=== PATIENT | female | born 2000 | race Caucasian/White ===

== ENCOUNTER 2020-10-08 13:49 | Emergency (ER) | payer BC, SELFPAY ==
--- NOTE | 2020-10-08 14:07 | ED.URI ---
HPI - URI/Sore Throat General Chief Complaint: Upper Respiratory Infection Stated Complaint: upper respiratory infection Source: patient and RN notes reviewed Mode of arrival: ambulatory Limitations: no limitations History of Present Illness HPI Narrative: 20-year-old female presents to urgent care with complaints of 24 hours of a sore throat. States she has a history of strep throat every August. States she is able to eat and drink but with pain. Also complains of bilateral ear pain. Denies fevers, SOB, Chest pain or abd pain. Denies nausea, vomiting, diarrhea. Related Data Allergies Allergy/AdvReac Type Severity Reaction Status Date / Time No Known Allergies Allergy Verified 10/08/20 14:12 Review of Systems Review of Systems: Narrative: CONSTITUTIONAL: Denies fever, chills, or sweats. EYES: Denies visual changes, redness, or discharge. ENT: Denies rhinorrhea, congestion +sore throat and bilateral otalgia. CARDIOVASCULAR: Denies chest pain, palpitations, or edema. RESPIRATORY: Denies cough or dyspnea. GASTROINTESTINAL: Denies abdominal pain, nausea, vomiting, or diarrhea. GENITOURINARY: Denies dysuria or hematuria. SKIN: Denies rash or itching. MUSCULOSKELETAL: Denies back pain, joint pain, or myalgia. NEUROLOGIC: Denies headache, numbness, or weakness. PSYCHIATRIC: Denies anxiety or depression. All other systems reviewed are negative, except as documented in HPI. [facility] Social History Social History Gender identity (if verbalized by the patient): Female Comments Patient denies any past medical or surgical history. At the time of my signature, I reviewed and agree with the nursing past medical, surgical, social, and family history. There is no relevant family history pertinent to the patient complaint. Exam Narrative: Exam Narrative: GENERAL: This is a well-nourished, well-developed patient, in no apparent distress. HEAD: normocephalic, atraumatic. EYES: PERRL. Sclera clear/white. Vision is grossly intact. EARS: External ears normal, auditory canals clear and without drainage, TMs normal without perforation. Hearing grossly intact. NOSE: External nose normal. Positive for clear nasal discharge, nares without redness. THROAT: Mucous membranes moist, tonsils bilaterally with exudate. Uvula is midline. Posterior pharynx red. NECK: Neck supple. Neck tender with lateral lymphadenopathy. CARDIOVASCULAR: Regular rate and rhythm without murmurs, gallops, or rubs. RESPIRATORY: Clear to auscultation. Breath sounds equal bilaterally. No wheezes, rales, or rhonchi. GASTROINTESTINAL: Abdomen soft, non-tender, nondistended. SKIN: warm, intact with no suspicious lesions or rash, good texture and turgor. NEURO: awake, alert, and oriented to person, place and time. There were no obvious focal neurologic abnormalities. EXTREMITIES: No clubbing, cyanosis, or edema. No joint tenderness, effusion, or edema noted. Course Vital Signs Vital signs: Vital Signs Temperature 98.7 F 10/08/20 14:13 Pulse Rate 101 H 10/08/20 14:13 Respiratory Rate 18 10/08/20 14:13 Blood Pressure 137/85 10/08/20 14:13 Pulse Oximetry 100 10/08/20 14:13 Temperature 98.7 F 10/08/20 14:13 Pulse Rate 101 H 10/08/20 14:13 Respiratory Rate 18 10/08/20 14:13 Blood Pressure 137/85 10/08/20 14:13 Pulse Oximetry 100 10/08/20 14:13 Reviewed MDM - URI/Sore Throat Differential Diagnosis Differential diagnosis: Likely upper respiratory infection, otitis media, sinusitis, viral infection, bronchitis, influenza, pharyngitis and other (Strep throat) Lab Data Labs: Strep Screen Presumptive Negative *(Reference Range: Negative)* Strep Screen Presumptive Negative *(Reference Range: Negative)* Reviewed Critical Care Time Critical Care Time Critical Care Time: No Discharge
[2020-10-08 14:13] VITALS: BP 137/85; PULSE 101; RESP 18; TEMP 37.1; O2SAT 100
== END 2020-10-08 14:34 | disposition home or self-care (01) ==
PROVIDERS: Emergency Provider Nurse Practitioner; PCP Family Medicine
DX: J03.90 Acute tonsillitis, unspecified (principal)
CPT/HCPCS: 87081; 87880; 99213; G0463

== ENCOUNTER 2020-11-06 16:04 | Emergency (ER) | payer BC, SELFPAY ==
[2020-11-06 16:15] VITALS: BP 111/79; PULSE 89; RESP 20; TEMP 37.5; O2SAT 100
--- NOTE | 2020-11-06 16:23 | ED.GENADULT ---
HPI - General Adult General Chief complaint: Upper Respiratory Infection Stated complaint: Sore Throat Time Seen by Provider: 11/06/20 16:15 Source: patient and RN notes reviewed Mode of arrival: ambulatory Limitations: no limitations History of Present Illness HPI narrative: 20-year-old female presents with complaints of sore throat and low-grade fever for the past 2 days. Rosalee reports having sore throat with some improvement over the last 24 hours, no longer have white patches to throat or low grade fever. Tylenol (last on 11/05/20) with little relief. No high fevers, drooling, neck or throat swelling. Pain is bilateral. Hurts to swallow. Exacerbation factors consist of eating and drinking. No rhinorrhea. Nasal congestion. No voice change. No nausea, vomiting, or abdominal pain. Tolerating liquids well. Denies chills, dyspnea, difficulty swallowing, jaw pain, dental pain, facial pain, foreign body sensation, and rash. Remains active. The patient reports she have not been diagnosed with COVID-19. The patient reports she is not waiting for the results of a COVID-19 lab test. The patient reports she do not have chills, weakness, or fatigue. The patient reports she do not have a new or worsening cough or shortness of breath. Denies chest pain. The patient reports she do not have any loss of taste or smell or diarrhea. Tolerating po intake well. Denies recent traveling. Denies concerns for COVID-19 or exposures been home with limited outdoor exposure except for essential household needs, work, and return home. At this time, patient is not suspected of having COVID-19. Some parts of this dictation were generated by voice recognition software and may contain typographical and/or grammatical inaccuracies. Related Data Allergies Allergy/AdvReac Type Severity Reaction Status Date / Time No Known Allergies Allergy Verified 10/08/20 14:12 Review of Systems Review of Systems: Narrative: CONSTITUTIONAL: Complains of low-grade fever. Denies chills, sweats. EYES: Denies visual changes, redness, discharge. ENT: Denies rhinorrhea, otalgia. Complains of sore throat, congestion. CARDIOVASCULAR: Denies chest pain, palpitations, edema. RESPIRATORY: Denies dyspnea, wheezing, cough. GASTROINTESTINAL: Denies abdominal pain, nausea, vomiting, diarrhea. GENITOURINARY: Denies dysuria, hematuria, abnormal discharge. SKIN: Denies rash or itching. MUSCULOSKELETAL: Denies acute back pain, joint pain, or myalgia. NEUROLOGIC: Denies numbness or focal weakness. PSYCHIATRIC: Denies anxiety or depression. All systems reviewed & are unremarkable except as noted in HPI and below. [facility] Past Medical History Medical History (Updated 11/06/20 @ 16:59 by CHELLE Lind) No significant past medical history Surgical History Surgical History (Updated 11/06/20 @ 16:59 by CHELLE Lind) No significant past surgical history Family History Family History (Updated 11/06/20 @ 17:00 by CHELLE Lind) Father Hypertension Hypercholesteremia Mother Alive and well Social History Social History (Updated 11/06/20 @ 17:01 by CHELLE Lind) Smoking status: Former smoker Tobacco type: cigarettes Second hand tobacco smoke exposure: No Smoking end date: 09/13/20 Alcohol intake: current Substance use: never Substance use type: does not use Living arrangements: with family Occupation/Education: occupation 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 There is no relevant family history pertinent to the presenting complaint. Exam Narrative: Exam Narrative: GENERAL: This is a well-nourished, well-developed
== END 2020-11-06 16:48 | disposition home or self-care (01) ==
PROVIDERS: Emergency Provider Nurse Practitioner Family
DX: H65.192 Other acute nonsuppurative otitis media, left ear (principal); J02.9 Acute pharyngitis, unspecified; Z87.891 Personal history of nicotine dependence
CPT/HCPCS: 87081; 87804; 87880; 99213; G0463

== ENCOUNTER 2020-12-07 17:36 | Emergency (ER) | payer BC, SELFPAY ==
[2020-12-07] VITALS (9 sets, daily range): BP systolic 100–123; BP diastolic 60–86; PULSE 96–110; RESP 16–22; TEMP 37; O2SAT 99–100
--- NOTE | 2020-12-07 17:50 | ECG_ITS ---
Measurements Intervals [place] Rate: 107 P: 61 [place]: 168 QRS: 75 QRSD: 88 T: 13 QT: 341 QTc: 455 Interpretive Statements SINUS TACHYCARDIA INCOMPLETE RIGHT BUNDLE BRANCH BLOCK DELAYED PRECORDIAL R/S TRANSITION NONSPECIFIC ST & T-WAVE ABNORMALITY- INFERIOR LEADS BASELINE ARTIFACT- V1-V2 ABNORMAL ECG Electronically Signed On 12-07-2020 18:15:46 CDT by Abdirahman Castanon D.O.
[2020-12-07 18:25] LABS: Basophils Percent Auto 0.4 % (0.2-1.2); Eosinophils Percent Auto 0.1 % (0-4.4); Hematocrit 37.4 % (37.0-47.0); Hemoglobin 12.5 g/dL (12.0-15.0); Immature Granulocyte Absolute 0.02 K/mm3 (0.00-0.031); Immature Granulocyte Percent A 0.2 % (0-0.5); Lymphocytes Absolute Auto 1.37 K/mm3 (0.9-3.2); Lymphocytes Percent Auto 14.4 % (18.3-44.2); Mean Corpuscular HGB Conc 33.4 g/dl (32-36); Mean Corpuscular Hemoglobin 29.6 pg (26-34); Mean Corpuscular Volume 88.6 fl (80-100); Mean Platelet Volume 9.8 fl (7.4-10.4); Monocytes Absolute Auto 0.5 K/mm3 (0.1-0.6); Monocytes Percent Auto 5.4 % (2.6-8.5); Neutrophils Absolute Auto 7.6 K/mm3 (1.3-6.7); Neutrophils Percent Auto 79.5 % (45.5-73.1); Platelet Count Result 287 k/mm3 (150-375); Red Blood Count 4.22 M/mm3 (4.2-5.4); Red Cell Distribution Width 12.5 % (11.5-14.5); White Blood Count 9.5 K/mm3 (4.5-10.0)
[2020-12-07 18:36] LABS: Ethanol < 10 mg/dL (<10)
[2020-12-07 18:37] LABS: Alanine Aminotransferase 19 U/L (4-35); Alkaline Phosphatase 62 U/L (38-126); Anion Gap 7 mmol/L (8-16); Aspartate Amino Transferase 28 U/L (14-36); Bilirubin,Total 0.4 mg/dL (0.2-1.3); Blood Urea Nitrogen 8 mg/dL (7-17); Calcium 8.2 mg/dL (8.4-10.2); Carbon Dioxide 23 mmol/L (22-30); Chloride 110 mmol/L (98-107); Estimated CRCL calculation 69 ml/min; Estimated Glomerular Filt Rate > 60; Glucose 92 mg/dL (65-105); Potassium 4.1 mmol/L (3.4-5.0); Sodium 140 mmol/L (137-145)
[2020-12-07 18:41] LABS: Add Urine Microscopic? YES; Appearance Urine Clear (Clear); Bacteria Urine Trace /hpf; Bilirubin Urine Negative (Negative); Blood Urine Negative (Negative); Color Urine Yellow (Yellow); Glucose Urine UA Negative (Negative); Ketones Urine Trace mg/dL (Negative); Leukocyte Esterase Ur Negative LEU/UL (Negative); Mucus Urine Rare /lpf; Nitrate Urine Negative (Negative); Protein Urine 1+ mg/dL (Negative); RBC Urine 0-2 /hpf (0-2); Specific Grav Ur 1.021 (1.001-1.035); Squamous Epithelial Cell Urine Few /hpf (Few); Urobilinogen Urine Negative mg/dL (<2.0); WBC Urine 0-3 /hpf
[2020-12-07 18:51] LABS: Amphetamine Screen Urine Negative (Negative); Barbiturate Screen Urine Negative (Negative); Benzodiazepines Screen Urine Negative (Negative); Cannabinoid Screen Urine Positive (Negative); Cocaine Screen Urine Negative (Negative); Methadone Screen Urine Negative (Negative); Opiate Screen Urine Negative (Negative); Phencyclidine Screen Urine Negative (Negative)
--- NOTE | 2020-12-07 20:47 | ED.GENADULT ---
HPI - General Adult General Chief complaint: Weakness Stated complaint: weak Time Seen by Provider: 12/07/20 17:54 Source: patient Mode of arrival: EMS Limitations: no limitations History of Present Illness HPI narrative: Patient presents via EMS with chief complaint of feeling fatigued and having Covid. Patient states that she was drinking a large quantity of alcohol last night with her last drink being approximately 3 or 4 AM. Patient states that she drank approximately 14 beers. Patient states she cannot drink very much. Patient states she was feeling very tired this morning and attempted to go to [employer] to get a coffee to perk her up however on her way there she began feeling very tired so she called 911. Patient denies loss of consciousness, head injury, changes in vision or hearing, chest pain, shortness of breath or any other symptoms. Related Data Home Medications Medication Instructions Recorded Confirmed norethindrone-e.estradiol-iron tablet 12/07/20 [10/03 (28)] Allergies Allergy/AdvReac Type Severity Reaction Status Date / Time No Known Allergies Allergy Verified 12/07/20 17:46 Review of Systems Review of Systems: Narrative: CONSTITUTIONAL: Reports fatigue denies fever, chills, or sweats. EYES: Denies visual changes, redness, or discharge. ENT: Denies rhinorrhea, congestion, sore throat, or otalgia. CARDIOVASCULAR: Denies chest pain, palpitations, or edema. RESPIRATORY: Denies cough or dyspnea. GASTROINTESTINAL: Denies abdominal pain, nausea, vomiting, or diarrhea. GENITOURINARY: Denies dysuria or hematuria. SKIN: Denies rash or itching. MUSCULOSKELETAL: Denies back pain, joint pain, or myalgia. NEUROLOGIC: Denies headache, numbness, dizziness, or weakness. PSYCHIATRIC: Denies anxiety or depression. [facility] Past Medical History Medical History (Updated 11/07/20 @ 00:00 by Background Daemon) No significant past medical history Surgical History Surgical History (Updated 11/06/20 @ 16:59 by CHELLE Lind) No significant past surgical history Family History Family History (Updated 11/06/20 @ 17:00 by CHELLE Lind) Father Hypertension Hypercholesteremia Mother Alive and well Social History Social History Smoking status: Former smoker Tobacco type: cigarettes Second hand tobacco smoke exposure: No Smoking end date: 09/13/20 Alcohol intake: current Substance use: never Substance use type: does not use Additional occupation/education 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 HEAD: Normocephalic, atraumatic. EYES: PERRLA and EOMI. ENT: Nares clear, no rhinorrhea or epistaxis. Mucous membranes moist. Oropharynx without tonsillar hypertrophy exudate or other lesions. Bilateral TMs pearly roberts nonbulging NECK: Supple. No adenopathy or masses. CHEST: Clear to auscultation. No respiratory distress. No wheezes rales or rhonchi HEART: Regular rate and rhythm. No murmur heard. Normal peripheral pulses. ABDOMEN: Soft, nontender, nondistended, normal active bowel sounds. EXTREMITIES: Normal range of motion. No edema. SKIN: Warm, dry, no rash. NEURO: No focal deficits. Alert and oriented x3. PSYCH: Normal mood and affect. Course Vital Signs Vital signs: Vital Signs Pulse Rate 104 H 12/07/20 17:38 Respiratory Rate 18 12/07/20 17:38 Blood Pressure 123/86 12/07/20 17:38 Pulse Oximetry 100 12/07/20 17:38 Temperature 98.6 F 12/07/20 20:11 Pulse Rate 100 12/07/20 20:11 Respiratory Rate 16 12/07/20 20:11 Blood Pressure 100/60 12/07/20 20:11 Pulse Oximetry 100 12/07/20 20:11 Medical Decision Making MDM Narrative Medical decision making narrative: Patient reports feeling improved aft
== END 2020-12-07 20:12 | disposition home or self-care (01) ==
PROVIDERS: Physician Assistant; Emergency Provider Emergency Medicine
DX: T51.0X1A Toxic effect of ethanol, accidental (unintentional), initial encounter (principal); R53.83 Other fatigue; Z87.891 Personal history of nicotine dependence; R00.0 Tachycardia, unspecified; I45.10 Unspecified right bundle-branch block; R94.31 Abnormal electrocardiogram [ECG] [EKG]; Z86.16 Personal history of COVID-19
CPT/HCPCS: 36415; 80053; 80307; 81001; 81025; 85025; 93005; 99283

== ENCOUNTER 2021-02-26 10:26 | Emergency (ER) | payer BC, SELFPAY ==
[2021-02-26 10:33] VITALS: BP 120/87; PULSE 79; RESP 14; TEMP 36.9; O2SAT 98
--- NOTE | 2021-02-26 10:47 | ED.OVERDOSE ---
HPI - Overdose General Chief Complaint: Overdose Stated Complaint: overdose on tylenol Time Seen by Provider: 02/26/21 10:47 Source: patient Mode of arrival: ambulatory Limitations: no limitations History of Present Illness HPI Narrative: Patient is a 20-year-old female who presents for evaluation of accidental Tylenol overdose. Patient states that she was drinking alcohol last night and stayed up very late. When she finally went to sleep, she awakened briefly this morning with some upper abdominal pain. Patient states this is typical of when she drinks alcohol, that she usually keeps Tylenol and ibuprofen next to the bedside and poured a handful of what she thought was ibuprofen into her hand before swallowing it. Patient estimates that was 10 to 12 tablets. Patient then went back to sleep. Awakened this morning and feels fine. No current abdominal pain, chest pain, nausea, vomiting. Patient reports general fatigue. States that she then was told by her boyfriend that it was a bottle of Tylenol not ibuprofen. Patient states that these were 500 mg tablets of Tylenol. Ingestion was at 7:30 AM this morning. Patient denies any suicidal or homicidal ideation. She does have a history of suicide attempt in the past, but states that she is not suicidal, was not attempting to harm herself. Related Data Home Medications Medication Instructions Recorded Confirmed norethindrone-e.estradiol-iron tablet 12/07/20 [10/03 (28)] Allergies Allergy/AdvReac Type Severity Reaction Status Date / Time No Known Allergies Allergy Verified 02/26/21 10:48 Review of Systems Review of Systems: Narrative: CONSTITUTIONAL: Denies fever, chills, or sweats. EYES: Denies visual changes, redness, or discharge. ENT: Denies rhinorrhea, congestion, sore throat, or otalgia. CARDIOVASCULAR: Denies chest pain, palpitations, or edema. RESPIRATORY: Denies cough or dyspnea. GASTROINTESTINAL: Denies abdominal pain, nausea, vomiting, or diarrhea. GENITOURINARY: Denies dysuria or hematuria. SKIN: Denies rash or itching. MUSCULOSKELETAL: Denies back pain, joint pain, or myalgia. NEUROLOGIC: Denies headache, numbness, or weakness. PSYCHIATRIC: Denies homicidal or suicidal ideation [facility] Past Medical History Medical History (Updated 02/26/21 @ 14:42 by Mckayla Sharp MD) No significant past medical history Suicide attempt Surgical History Surgical History (Updated 11/06/20 @ 16:59 by CHELLE Lind) No significant past surgical history Family History Family History (Updated 11/06/20 @ 17:00 by CHELLE Lind) Father Hypertension Hypercholesteremia Mother Alive and well Social History Social History Smoking status: Former smoker Tobacco type: cigarettes Second hand tobacco smoke exposure: No Smoking end date: 09/13/20 Alcohol intake: current Substance use: never Substance use type: does not use Additional occupation/education 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 EYES: PERRLA and EOMI. ENT: Nares clear, no rhinorrhea or epistaxis. Mucous membranes moist. NECK: Supple. CHEST: No respiratory distress, breathing even and non labored HEART: Regular rate, sinus rhythm ABDOMEN:Non distended, non tender EXTREMITIES: Normal range of motion. No edema. SKIN: Warm, dry, no rash. NEURO:No focal deficits. Alert and oriented x3 Course Reevaluation(s) Reevaluation #1: Patient's family member present in room. Patient still feels well. 4-hour acetaminophen level is 14. Not critically elevated. Poison control does not recommend any further interventions, no N-acetylcysteine. Patient assessed by behavioral health provider, patient does not endorse any homicidal or suic
--- NOTE | 2021-02-26 10:49 | ECG_ITS ---
Measurements Intervals [place] Rate: 65 P: 62 [place]: 155 QRS: 77 QRSD: 94 T: 53 QT: 420 QTc: 439 Interpretive Statements SINUS RHYTHM WITH SINUS ARRHYTHMIA INCOMPLETE RIGHT BUNDLE BRANCH BLOCK BORDERLINE ECG Electronically Signed On 02-26-2021 11:38:06 CDT by Abdirahman Castanon D.O.
--- NOTE | 2021-02-26 10:50 | PC.NURSE ---
per EDP romina, no SI precautions or sitter needed.
--- NOTE | 2021-02-26 10:51 | PC.NURSE ---
Poison control called. they state to get a tylenol level at 1130. supportive care recommended
[2021-02-26] MEDS: SODIUM CHLORIDE 0.9% IV 1,000 ML 999 ML IV CONT (11:01)
--- NOTE | 2021-02-26 11:13 | PC.NURSE ---
pt unable to provide urine sample at this time.
[2021-02-26 11:15] LABS: Basophils Percent Auto 0.5 % (0.2-1.2); Eosinophils Absolute Auto 0.1 K/mm3 (0-0.3); Immature Granulocyte Absolute 0.03 K/mm3 (0.00-0.031); Immature Granulocyte Percent A 0.4 % (0-0.5); Lymphocytes Absolute Auto 1.45 K/mm3 (0.9-3.2); Mean Corpuscular HGB Conc 33.3 g/dl (32-36); Mean Corpuscular Hemoglobin 29.1 pg (26-34); Mean Corpuscular Volume 87.4 fl (80-100); Mean Platelet Volume 10.4 fl (7.4-10.4); Monocytes Absolute Auto 0.6 K/mm3 (0.1-0.6); Monocytes Percent Auto 6.8 % (2.6-8.5); Neutrophils Absolute Auto 5.9 K/mm3 (1.3-6.7); Neutrophils Percent Auto 73.3 % (45.5-73.1); Platelet Count Result 255 k/mm3 (150-375); Red Blood Count 4.46 M/mm3 (4.2-5.4); Red Cell Distribution Width 12.5 % (11.5-14.5); White Blood Count 8.1 K/mm3 (4.5-10.0)
[2021-02-26 11:21] LABS: Alanine Aminotransferase 14 U/L (4-35); Albumin Level 4.5 g/dL (3.5-5.1); Alkaline Phosphatase 65 U/L (38-126); Anion Gap 13 mmol/L (8-16); Aspartate Amino Transferase 31 U/L (14-36); Bilirubin,Total 0.5 mg/dL (0.2-1.3); Blood Urea Nitrogen 8 mg/dL (7-17); Calcium 9.5 mg/dL (8.4-10.2); Carbon Dioxide 22 mmol/L (22-30); Chloride 108 mmol/L (98-107); Estimated CRCL calculation 85 ml/min; Estimated Glomerular Filt Rate > 60; Glucose 89 mg/dL (65-105); Sodium 143 mmol/L (137-145)
[2021-02-26 11:22] LABS: Acetaminophen 25 ug/mL (10-30); Ethanol < 10 mg/dL (<10); Salicylate < 1.0 mg/dL (2-20)
[2021-02-26 11:32] LABS: Add Urine Microscopic? YES; Appearance Urine Clear (Clear); Bilirubin Urine Negative (Negative); Blood Urine Negative (Negative); Color Urine Yellow (Yellow); Glucose Urine UA Negative (Negative); Ketones Urine Trace mg/dL (Negative); Leukocyte Esterase Ur Negative LEU/UL (Negative); Mucus Urine Rare /lpf; Nitrate Urine Negative (Negative); Protein Urine Negative (Negative); RBC Urine 0-2 /hpf (0-2); Squamous Epithelial Cell Urine Occasional /hpf (Few); Urobilinogen Urine Negative mg/dL (<2.0); WBC Urine 0-3 /hpf
[2021-02-26 11:34] LABS: Specific Grav Ur 1.032 (1.001-1.035)
[2021-02-26 11:44] LABS: Amphetamine Screen Urine Negative (Negative); Barbiturate Screen Urine Negative (Negative); Benzodiazepines Screen Urine Negative (Negative); Cannabinoid Screen Urine Positive (Negative); Cocaine Screen Urine Negative (Negative); Methadone Screen Urine Negative (Negative); Opiate Screen Urine Negative (Negative); Phencyclidine Screen Urine Negative (Negative)
[2021-02-26 12:50] VITALS: BP 113/70; PULSE 84; RESP 14; O2SAT 98
[2021-02-26 13:24] LABS: Acetaminophen 14 ug/mL (10-30)
--- NOTE | 2021-02-26 13:36 | PC.NURSE ---
spoke with maria guadalupe from crisis, crisis on the way at this time.
[2021-02-26 15:49] VITALS: BP 120/80; PULSE 73; RESP 14; O2SAT 97
== END 2021-02-26 15:34 | disposition home or self-care (01) ==
PROVIDERS: Emergency Provider Emergency Medicine
DX: T39.1X1A Poisoning by 4-Aminophenol derivatives, accidental (unintentional), initial encounter (principal); Z87.891 Personal history of nicotine dependence; I45.10 Unspecified right bundle-branch block
CPT/HCPCS: 36415; 80053; 80307; 81001; 85025; 93005; 96360; 99284; J7030

== ENCOUNTER 2021-12-12 11:15 | Emergency (ER) | payer BC, SELFPAY ==
--- NOTE | ~2021-12-12 | XR_ITS ---
EXAMINATION: XR chest 2V DATE: 12/12/2021 12:47 INDICATION: Painful cough and body aches TECHNIQUE: PA and lateral views of the chest were obtained. COMPARISON: None FINDINGS: The lungs are clear with no focal airspace opacities, pulmonary edema, pleural effusion or pneumothor ax. The cardiomediastinal silhouette is normal. Visualized bones and soft tissues are unremarkable. IMPRESSION: 1. Normal chest radiograph. Reviewed, dictated and finalized at location A. IMPRESSION: 1. Normal chest radiograph.
[2021-12-12 11:24] VITALS: BP 118/76; PULSE 95; RESP 16; TEMP 36.8; O2SAT 100
[2021-12-12 13:02] LABS: Basophils Percent Auto 0.7 % (0.2-1.2); Eosinophils Percent Auto 0.5 % (0-4.4); Hematocrit 42.2 % (37.0-47.0); Hemoglobin 13.8 g/dL (12.0-15.0); Immature Granulocyte Absolute 0.02 K/mm3 (0.00-0.031); Immature Granulocyte Percent A 0.5 % (0-0.5); Lymphocytes Absolute Auto 1.22 K/mm3 (0.9-3.2); Lymphocytes Percent Auto 29.6 % (18.3-44.2); Mean Corpuscular HGB Conc 32.7 g/dl (32-36); Mean Corpuscular Hemoglobin 29.6 pg (26-34); Mean Corpuscular Volume 90.4 fl (80-100); Mean Platelet Volume 10.1 fl (7.4-10.4); Monocytes Absolute Auto 0.8 K/mm3 (0.1-0.6); Monocytes Percent Auto 18.2 % (2.6-8.5); Neutrophils Absolute Auto 2.1 K/mm3 (1.3-6.7); Neutrophils Percent Auto 50.5 % (45.5-73.1); Platelet Count Result 195 k/mm3 (150-375); Red Blood Count 4.67 M/mm3 (4.2-5.4); Red Cell Distribution Width 12.3 % (11.5-14.5); White Blood Count 4.1 K/mm3 (4.5-10.0)
[2021-12-12 13:16] LABS: Alanine Aminotransferase 16 U/L (4-35); Albumin Level 4.3 g/dL (3.5-5.1); Alkaline Phosphatase 61 U/L (38-126); Anion Gap 7 mmol/L (8-16); Aspartate Amino Transferase 31 U/L (14-36); Bilirubin,Total 0.4 mg/dL (0.2-1.3); Blood Urea Nitrogen 12 mg/dL (7-17); Calcium 8.7 mg/dL (8.4-10.2); Carbon Dioxide 27 mmol/L (22-30); Chloride 99 mmol/L (98-107); Estimated CRCL calculation 79 ml/min; Estimated Glomerular Filt Rate > 60; Glucose 84 mg/dL (65-110); Potassium 3.8 mmol/L (3.4-5.0); Sodium 133 mmol/L (137-145)
--- NOTE | 2021-12-12 13:59 | ED.GENADULT ---
HPI - General Adult General Chief complaint: Shortness of Breath/Dyspnea Stated complaint: cough/body aches Time Seen by Provider: 12/12/21 12:03 Source: patient Mode of arrival: ambulatory Limitations: no limitations History of Present Illness HPI narrative: 21-year-old otherwise healthy here with complaints of body aches, cough upper respiratory symptoms for last 2 days. She denies any nausea or vomiting. Cough is nonproductive. Onset (ago): day(s) (2) Quality: aching Relieving factors: none Exacerbating factors: none Associated symptoms: denies other symptoms Related Data Home Medications Medication Instructions Recorded Confirmed norethindrone-e.estradiol-iron tablet 12/07/20 [10/03 (28)] Allergies Allergy/AdvReac Type Severity Reaction Status Date / Time No Known Allergies Allergy Verified 12/12/21 12:00 Review of Systems Review of Systems: All systems reviewed & are unremarkable except as noted in HPI and below Constitutional: Constitutional: Reports no additional constitutional complaints Eyes: Eyes: Reports no additional eye complaints ENT: Reports system reviewed and no additional complaints, except as documented Cardiovascular: Cardiovascular: Reports no additional cardiovascular complaints Respiratory: Respiratory: Reports as per HPI Gastrointestinal: Gastrointestinal: Reports no additional gastrointestinal complaints Musculoskeletal: Musculoskeletal: Reports no additional musculoskeletal complaints Integumentary/Breasts: Skin/Breast: Reports system reviewed and no additional complaints, except as docu PMFSH Past Medical History Medical History No significant past medical history Suicide attempt Surgical History Surgical History No significant past surgical history Family History Family History Father Hypertension Hypercholesteremia Mother Alive and well Social History Social History Smoking status: Former smoker Tobacco type: cigarettes Second hand tobacco smoke exposure: No Smoking end date: 09/13/20 Alcohol intake: current Substance use: never Substance use type: does not use 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 HEAD: Normocephalic, atraumatic. EYES: PERRLA and EOMI. ENT: Nares rhinorrhea . NECK: Supple. CHEST: Clear to auscultation. No respiratory distress. HEART: Regular rate and rhythm. No murmur heard. Normal peripheral pulses.. EXTREMITIES: Normal range of motion. No edema. SKIN: Warm, dry, no rash. NEURO: No focal deficits. Alert and oriented x3. PSYCH: Normal mood and affect. Course Course Emergency Course: Informed patient about her lab work and chest x-ray findings. She has influenza A positive we will start her on Tamiflu, advised to drink plenty of fluids Tylenol or ibuprofen for body aches and fever Vital Signs Vital signs: Vital Signs Temperature 36.8 C 12/12/21 11:24 Pulse Rate 95 12/12/21 11:24 Respiratory Rate 16 12/12/21 11:24 Blood Pressure 118/76 12/12/21 11:24 Pulse Oximetry 100 12/12/21 11:24 Temperature 36.8 C 12/12/21 11:24 Pulse Rate 95 12/12/21 11:24 Respiratory Rate 16 12/12/21 11:24 Blood Pressure 118/76 12/12/21 11:24 Pulse Oximetry 100 12/12/21 11:24 Medical Decision Making Vital Signs Vital Signs: Vital Signs Temperature 36.8 C 12/12/21 11:24 Pulse Rate 95 12/12/21 11:24 Respiratory Rate 16 12/12/21 11:24 Blood Pressure 118/76 12/12/21 11:24 Pulse Oximetry 10
== END 2021-12-12 14:09 | disposition home or self-care (01) ==
PROVIDERS: Emergency Provider Family Medicine
DX: J10.1 Influenza due to other identified influenza virus with other respiratory manifestations (principal); Z87.891 Personal history of nicotine dependence
CPT/HCPCS: 36415; 71046; 80053; 85025; 87804; 99283

== ENCOUNTER 2022-10-10 09:51 | Emergency (ER) | payer BC, SELFPAY ==
--- NOTE | ~2022-10-10 | CT_ITS ---
EXAMINATION: CT brain wo con DATE: 10/10/2022 11:19 INDICATION: Near syncope. Lightheadedness. TECHNIQUE: Computed tomography (CT) of the head was performed without intravenous contrast. The mA wa s adjusted according to patient size. Iterative reconstruction technique was employed. The dose-lengt h product was 605.33 mGy-cm. COMPARISON: None FINDINGS: There is no intracranial hemorrhage, acute infarction, or abnormal intracranial mass lesion . The ventricles are normal in size. There is mild mucosal thickening in the paranasal sinuses. The m astoid air cells are normal. IMPRESSION: 1. Normal brain. Reviewed, dictated and finalized at location A. DING CUSTODIAL SUPERVISOR IMPRESSION: 1. Normal brain.
[2022-10-10 09:53] VITALS: BP 120/77; PULSE 91; RESP 14; TEMP 36.7; O2SAT 100
--- NOTE | 2022-10-10 09:56 | ECG_ITS ---
Measurements Intervals [place] Rate: 95 P: 62 [place]: 131 QRS: 75 QRSD: 85 T: 57 QT: 354 QTc: 446 Interpretive Statements SINUS RHYTHM INCOMPLETE RIGHT BUNDLE BRANCH BLOCK MINIMAL Q WAVES- INFERIOR LEADS BASELINE ARTIFACT- I, II, III, AVR, AVL, AVF BORDERLINE ECG COMPARED TO ECG 02/26/2021 11:03:04 NO SIGNIFICANT CHANGES Electronically Signed On 10-10-2022 10:23:48 [employer] by Abdirahman Castanon D.O.
[2022-10-10 10:09] VITALS: BP 114/82; PULSE 88; RESP 16; O2SAT 100
--- NOTE | 2022-10-10 10:11 | PC.NURSE ---
pt ambulatory to bathroom without difficulty
--- NOTE | 2022-10-10 10:11 | ED.GENADULT ---
HPI - General Adult General Chief complaint: Syncope Stated complaint: syncope Time Seen by Provider: 10/10/22 10:06 Source: patient Mode of arrival: ambulatory Limitations: no limitations History of Present Illness HPI narrative: Patient is a 22 y/o female who presents to the ED with c/o lightheadedness. Patient reports having intermittent lightheadedness for the past couple of months. She states she had an episode in August where she had a syncopal episode and lost consciousness briefly. She was not evaluated at that time. Today, patient reported she was at school getting ready to take an exam when she developed lightheadedness, dizziness, ringing in her ears, tingling in extremities. She felt like she was going to pass out again but did not lose consciousness. She sat down and began to feel better. She then decided to come here. She does report still feeling somewhat lightheaded currently. Patient did not have anything to eat this morning. She did drink water today. Patient denies any CP, SOB, vision changes, nausea, vomiting, abdominal pain, MALIK. Patient has Hx of anxiety but states she weaned herself off her medication 1 month ago. Related Data Allergies Allergy/AdvReac Type Severity Reaction Status Date / Time No Known Allergies Allergy Verified 10/10/22 10:07 Review of Systems Review of Systems: CONSTITUTIONAL: Denies fever, chills, or sweats. EYES: Denies visual changes, redness, or discharge. ENT: Reports tinnitus. CARDIOVASCULAR: Denies chest pain, palpitations, or edema. RESPIRATORY: Denies cough or dyspnea. GASTROINTESTINAL: Denies abdominal pain, nausea, vomiting, or diarrhea. GENITOURINARY: Denies dysuria or hematuria. NEUROLOGIC: See HPI. PSYCHIATRIC: See HPI. All systems reviewed & are unremarkable except as noted in HPI and below [facility] Past Medical History Medical History (Updated 10/10/22 @ 11:47 by Kierra Marcus PA-C) Anxiety No significant past medical history Suicide attempt Surgical History Surgical History No significant past surgical history Family History Family History Father Hypertension Hypercholesteremia Mother Alive and well Social History Social History Smoking status: Former smoker Tobacco type: cigarettes Second hand tobacco smoke exposure: No Smoking end date: 09/13/20 Alcohol intake: current Substance use: never Substance use type: does not use Living arrangements: with family Occupation/Education: occupation Additional occupation/education comments: 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 HEAD: Normocephalic, atraumatic. EYES: PERRL/EOMI, conjunctivae clear bilaterally. No nystagmus. NECK: Supple. No adenopathy, no masses. RESPIRATORY: Airway patent, respirations nonlabored. Clear to auscultation bilaterally, no rales, rhonchi, wheezing. CARDIOVASCULAR: Regular rate and rhythm without murmurs, rubs, or gallops. Peripheral pulses 2+ and equal bilaterally. ABDOMINAL: Soft, nontender, nondistended, no hepatosplenomegaly. Normoactive BS. MUSCULOSKELETAL: Moves all extremities. Strength/ROM intact without gross deformities. No edema. SKIN: Warm, dry, normal color. No rashes. NEURO: A&O X3. Speech clear. Follows commands. CN II-XII intact. Sensation grossly intact. Steady gait. No ataxic movements. Strength 5/5 in upper and lower extremities bilaterally. Equal industrial retrofit designer strength bilaterally. No focal deficits. PSYCHIATRIC: Appropriate mood and affect. Normal interaction. Course Vital Signs Vital signs: Vital Signs Temperature 98.1 F 10/10/22 09:53
[2022-10-10 10:28] VITALS: BP 102/78; PULSE 76
[2022-10-10 10:30] VITALS: BP 104/80; PULSE 81
[2022-10-10 10:31] VITALS: BP 108/89; PULSE 97
[2022-10-10 10:31] LABS: Basophils Absolute Auto 0.1 K/mm3 (0.0-0.1); Basophils Percent Auto 0.8 % (0.2-1.2); Eosinophils Absolute Auto 0.1 K/mm3 (0-0.3); Eosinophils Percent Auto 1.3 % (0-4.4); Hematocrit 39.4 % (37.0-47.0); Hemoglobin 12.9 g/dL (12.0-15.0); Immature Granulocyte Absolute 0.02 K/mm3 (0.00-0.031); Immature Granulocyte Percent A 0.3 % (0-0.5); Lymphocytes Absolute Auto 1.52 K/mm3 (0.9-3.2); Lymphocytes Percent Auto 24.5 % (18.3-44.2); Mean Corpuscular HGB Conc 32.7 g/dl (32-36); Mean Corpuscular Hemoglobin 29.6 pg (26-34); Mean Corpuscular Volume 90.4 fl (80-100); Mean Platelet Volume 10.1 fl (7.4-10.4); Monocytes Absolute Auto 0.4 K/mm3 (0.1-0.6); Monocytes Percent Auto 7.1 % (2.6-8.5); Neutrophils Absolute Auto 4.1 K/mm3 (1.3-6.7); Platelet Count Result 244 k/mm3 (150-375); Red Blood Count 4.36 M/mm3 (4.2-5.4); Red Cell Distribution Width 13.2 % (11.5-14.5); White Blood Count 6.2 K/mm3 (4.5-10.0)
[2022-10-10 10:43] LABS: Alanine Aminotransferase 18 U/L (6-35); Albumin Level 4.5 g/dL (3.5-5.1); Alkaline Phosphatase 78 U/L (38-126); Anion Gap 8 mmol/L (8-16); Aspartate Amino Transferase 24 U/L (14-36); Bilirubin,Total 0.5 mg/dL (0.2-1.3); Blood Urea Nitrogen 6 mg/dL (7-17); Carbon Dioxide 25 mmol/L (22-30); Chloride 103 mmol/L (98-107); Estimated CRCL calculation 82 ml/min; Estimated Glomerular Filt Rate > 60; Glucose 93 mg/dL (65-110); Potassium 3.8 mmol/L (3.4-5.0); Sodium 136 mmol/L (137-145)
[2022-10-10 10:43] LABS: Appearance Urine Clear (Clear); Bilirubin Urine Negative (Negative); Blood Urine Negative (Negative); Color Urine Yellow (Yellow); Glucose Urine UA Negative (Negative); Ketones Urine Negative (Negative); Leukocyte Esterase Ur Trace LEU/UL (Negative); Nitrate Urine Positive (Negative); Protein Urine Trace mg/dL (Negative); Urobilinogen Urine 0.2 mg/dL (<2.0)
[2022-10-10 10:46] LABS: Bacteria Urine Trace /hpf; Mucus Urine Rare /lpf; Squamous Epithelial Cell Urine Moderate /hpf (Few)
[2022-10-10 11:19] LABS: Add Urine Microscopic? YES
[2022-10-10] MEDS: SODIUM CHLORIDE 0.9% IV 1,000 ML 999 ML IV CONT (11:36)
[2022-10-10 12:27] VITALS: BP 127/88; PULSE 88; RESP 18; O2SAT 98
== END 2022-10-10 12:27 | disposition home or self-care (01) ==
PROVIDERS: Emergency Medicine; Emergency Provider Physician Assistant
DX: R55 Syncope and collapse (principal); N30.01 Acute cystitis with hematuria; Z87.891 Personal history of nicotine dependence; I45.10 Unspecified right bundle-branch block
CPT/HCPCS: 36415; 70450; 80053; 81001; 81025; 85025; 87077; 87086; 87186; 93005; 96360; 99284; J7030

== ENCOUNTER 2023-07-24 14:08 | Emergency (ER) | payer BC, SELFPAY ==
--- NOTE | ~2023-07-24 | XR_ITS ---
EXAMINATION: XR chest 2V DATE: 07/24/2023 14:37 INDICATION: Shortness of breath and cough TECHNIQUE: PA and lateral views of the chest were obtained. COMPARISON: Chest radiograph dated 12/12/2021 FINDINGS: The lungs remain clear with no focal airspace opacities, pulmonary edema, pleural effusion or pneumot horax. The cardiomediastinal silhouette is normal. Visualized bones and soft tissues are unremarkable . IMPRESSION: 1. Normal chest radiograph. Reviewed, dictated and finalized at location A. EDICAL SERVICE ENGINEER IMPRESSION: 1. Normal chest radiograph.
[2023-07-24 14:20] VITALS: BP 128/74; PULSE 66; RESP 16; TEMP 36.5; O2SAT 100
--- NOTE | 2023-07-24 14:29 | ED.URI ---
HPI - URI/Sore Throat General Chief Complaint: Upper Respiratory Infection Stated Complaint: cough,sob Time Seen by Provider: 07/24/23 14:24 Source: patient and RN notes reviewed Mode of arrival: ambulatory Limitations: no limitations History of Present Illness HPI Narrative: Patient presents today complaining of a one-week history of productive cough, chest tightness, hoarseness, fatigue, nasal congestion, chest congestion. Denies fever. She has been taking cold and flu medicine without relief. No history of asthma or COPD. States mother is home sick with similar symptoms. Patient does not smoke cigarettes, but she does vape. Patient had COVID approximately 1 month ago. Related Data Allergies Allergy/AdvReac Type Severity Reaction Status Date / Time No Known Allergies Allergy Verified 07/24/23 14:24 Review of Systems Review of Systems: CONSTITUTIONAL: Denies body aches, fever, chills, or sweats.+ fatigue EYES: Denies visual changes, redness, or discharge. ENT: Denies rhinorrhea, sore throat, or otalgia.+ congestion, hoarseness CARDIOVASCULAR: Denies chest pain, palpitations, or edema. RESPIRATORY: + cough, shortness of breath with exertion GASTROINTESTINAL: Denies abdominal pain, nausea, vomiting, or diarrhea. GENITOURINARY: Denies dysuria or hematuria. SKIN: Denies rash, itching, or wounds. MUSCULOSKELETAL: Denies back pain, joint pain, or myalgia. NEUROLOGIC: Denies headache, numbness, tingling, or weakness. PSYCH: Denies depression or anxiety. [facility] Past Medical History Medical History Anxiety No significant past medical history Suicide attempt Surgical History Surgical History No significant past surgical history Family History Family History Father Hypertension Hypercholesteremia Mother Alive and well Social History Social History Smoking status: Former smoker Tobacco type: cigarettes Second hand tobacco smoke exposure: No Smoking end date: 09/13/20 Alcohol intake: current Substance use: never Substance use type: does not use Living arrangements: with family Occupation/Education: occupation Additional occupation/education comments: 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 Please see nursing chart for further information. There is no relevant family history pertinent to the presenting complaint Exam Narrative: GENERAL: Well-appearing, well-nourished, and in no acute distress. HEAD: Normocephalic, atraumatic. EYES: EOMI. No redness or drainage. Conjunctivae normal. ENT: Mucous membranes pink and moist. Nares mildly congested. No rhinorrhea. TMs normal bilaterally. Throat normal. Uvula midline. NECK: Normal AROM. Supple. No lymphadenopathy. CHEST: No respiratory distress. Clear to auscultation. HEART: Regular rate and rhythm. No murmur appreciated. Normal peripheral pulses. EXTREMITIES: Normal range of motion. No edema. SKIN: Warm, dry, no rash. Capillary refill normal. Normal skin turgor. NEURO: No focal deficits. Alert and oriented x3. Gait steady. PSYCH: Normal affect. No signs of depression or anxiety. Course Course Level of Care: Express Care Visit Vital Signs Vital signs: Vital Signs Temperature 97.7 F 07/24/23 14:20 Pulse Rate 66 07/24/23 14:20 Respiratory Rate 16 07/24/23 14:20 Blood Pressure 128/74 07/24/23 14:20 Pulse Oximetry 100 07/24/23 14:20 Oxygen Delivery Room Air 07/24/23 14:20 [place]
== END 2023-07-24 15:13 | disposition home or self-care (01) ==
PROVIDERS: Emergency Provider Nurse Practitioner
DX: J06.9 Acute upper respiratory infection, unspecified (principal)
CPT/HCPCS: 71046; 99213; G0463

== ENCOUNTER 2023-09-01 17:29 | Emergency (ER) | payer BC, SELFPAY ==
[2023-09-01 17:37] VITALS: BP 126/79; PULSE 100; RESP 16; TEMP 37.1; O2SAT 98
[2023-09-01 17:40] VITALS: BP 126/79; PULSE 100; RESP 16; TEMP 37.1; O2SAT 98
--- NOTE | 2023-09-01 18:11 | ED.URI ---
HPI - URI/Sore Throat General Chief Complaint: Upper Respiratory Infection Stated Complaint: Sore Throat History of Present Illness HPI Narrative: 23-year-old female presented for complaint of sore throat For a few days and intermittent hoarse voice and cough for over a month. She denies shortness of breath, wheezing, nausea, vomiting, fevers or chills. She states about 6 weeks ago she was treated with steroids and an albuterol inhaler for cough. Related Data Allergies Allergy/AdvReac Type Severity Reaction Status Date / Time No Known Allergies Allergy Verified 09/01/23 17:39 Review of Systems Review of Systems: CONSTITUTIONAL: Denies body aches, fever, chills, or sweats. EYES: Denies visual changes, redness, or discharge. ENT: Reports sore throat, hoarse voice Denies rhinorrhea, congestion, or otalgia. CARDIOVASCULAR: Denies chest pain, palpitations, or edema. RESPIRATORY: reports cough Denies dyspnea. GASTROINTESTINAL: Denies abdominal pain, nausea, vomiting, or diarrhea. SKIN: Denies rash, itching, or wounds. MUSCULOSKELETAL: Denies back pain, joint pain, or myalgia. NEUROLOGIC: Denies headache [facility] Past Medical History Medical History Anxiety No significant past medical history Suicide attempt Surgical History Surgical History No significant past surgical history Family History Family History Father Hypertension Hypercholesteremia Mother Alive and well Social History Social History Smoking status: Former smoker Tobacco type: cigarettes Second hand tobacco smoke exposure: No Smoking end date: 09/13/20 Alcohol intake: current Substance use: never Substance use type: does not use Living arrangements: with family Occupation/Education: occupation Additional occupation/education 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 EYES: conjunctivae clear ENT: Mucous membranes moist. TM pearly roberts with normal light reflex bilaterally; no tragal tenderness. Oropharynx mild erythematous without lesions. Tonsils enlarged 1+ and without exudate. No drooling, no hoarseness, no trismus, uvula midline. No tripod positioning, hot potato voice, or soft palate swelling. NECK: Supple. No lymphadenopathy CHEST: Clear to auscultation, breath sounds equal. No respiratory distress, speaks in full sentences. HEART: Regular rate and rhythm. No murmur heard. SKIN: Warm, dry, no rash. NEURO: Alert and oriented x3. Course Course Emergency Course: Patient is aware of diagnosis, understands and agrees to treatment plan. Anticipatory guidance given. Patient agrees to follow-up as directed and is aware of reasons to seek care at the emergency department. Portions of this record may have been created with voice recognition software Level of Care: Express Care Visit Vital Signs Vital signs: Vital Signs Temperature 98.8 F 09/01/23 17:37 Pulse Rate 100 09/01/23 17:37 Respiratory Rate 16 09/01/23 17:37 Blood Pressure 126/79 09/01/23 17:37 Pulse Oximetry 98 09/01/23 17:37 Oxygen Delivery Room Air 09/01/23 17:37 Temperature 98.8 F 09/01/23 17:40 Pulse Rate 100 09/01/23 17:40 Respiratory Rate 16 09/01/23 17:40 Blood Pressure 126/79 09/01/23 17:40 Pulse Oximetry 98 09/01/23 17:40 Oxygen Delivery Room Air 09/01/23 17:40 MDM - URI/Sore Throat MDM Narrative Medical decision making narrative: POS strep result reviewed with pt. Advise supportive treatments. Patient is appropriate for outpatient treatment and follo
== END 2023-09-01 18:20 | disposition home or self-care (01) ==
PROVIDERS: Emergency Provider Nurse Practitioner Family
DX: J02.0 Streptococcal pharyngitis (principal); Z87.891 Personal history of nicotine dependence
CPT/HCPCS: 87880; 99213; G0463